=== PATIENT | male | born 1970 | race Caucasian/White ===

== ENCOUNTER 2022-03-31 03:41 | Emergency (ER) | payer OTHER, SELFPAY ==
[2022-03-31] VITALS (15 sets, daily range): BP systolic 93–148; BP diastolic 67–87; PULSE 80–95; RESP 9–18; TEMP 36.8; O2SAT 95–100
--- NOTE | ~2022-03-31 | XR_ITS ---
EXAMINATION: XR chest 2V DATE: 03/31/2022 05:41 INDICATION: ICD discharged. TECHNIQUE: PA and lateral views of the chest were obtained. COMPARISON: Chest radiograph dated 10/12/2013 FINDINGS: The lungs remain clear with no focal airspace opacities, pulmonary edema, pleural effusion or pneumot horax. Mild cardiomegaly. Single lead cardiac pacemaker/defibrillator in unchanged position with the tip near the apex of the right ventricle. IMPRESSION: 1. Mild cardiomegaly. No acute cardiopulmonary disease. 2. Cardiac pacemaker/defibrillator in unchanged expected position. Reviewed, dictated and finalized at location A.
--- NOTE | 2022-03-31 04:05 | ECG_ITS ---
Measurements Intervals [place] Rate: 94 P: 26 PA: 181 QRS: 218 QRSD: 128 T: 17 QT: 384 QTc: 481 Interpretive Statements SINUS RHYTHM RIGHT AXIS DEVIATION POSSIBLE LEFT ATRIAL ENLARGEMENT RIGHT BUNDLE BRANCH BLOCK HIGH LATERAL INFARCT, AGE INDETERMINATE ABNORMAL ECG Electronically Signed On 03-31-2022 7:56:41 CDT by Saeid Robbins D.O.
--- NOTE | 2022-03-31 04:16 | ED.ARRPALP ---
HPI - Arrhythmia/Palpitations General Chief Complaint: Arrhythmia/Palpitations Stated Complaint: ICD FIRED Time Seen by Provider: 03/31/22 03:44 Source: patient History of Present Illness HPI narrative: Patient presents with his ICD firing. Patient has a history of V. tach had an ICD placed in 2012 has not had recurrence of symptoms. Tonight was startled awake as he felt his defibrillator discharge. He was concerned and called EMS and was brought to the ER for evaluation. On arrival to the ER he reports he is feeling much improved as reports feels slightly anxious and lightheaded but much improved from his initial symptoms and call to EMS. Denies any chest pain right now denies any shortness of breath. Denies any recent fevers cough, congestion, change in appetite, nausea vomiting or diarrhea. Related Data Home Medications Medication Instructions Recorded Confirmed dapagliflozin [Farxiga] 5 mg PO DAILY 03/31/22 metoprolol succinate 100 mg PO DAILY 03/31/22 sacubitril-valsartan [Entresto] 1 tablet PO BID 03/31/22 Allergies Allergy/AdvReac Type Severity Reaction Status Date / Time Penicillins Allergy Unknown Verified 03/31/22 03:52 Review of Systems Review of Systems: CONSTITUTIONAL: Denies fever, chills, or sweats. EYES: Denies visual changes, redness, or discharge. ENT: Denies rhinorrhea, congestion, sore throat, or otalgia. CARDIOVASCULAR: Denies chest pain, palpitations, or edema. RESPIRATORY: Denies cough or dyspnea. GASTROINTESTINAL: Denies abdominal pain, nausea, vomiting, or diarrhea. GENITOURINARY: Denies dysuria or hematuria. SKIN: Denies rash or itching. MUSCULOSKELETAL: Denies back pain, joint pain, or myalgia. NEUROLOGIC: Denies headache, numbness, dizziness, or weakness. PSYCHIATRIC: Denies anxiety or depression. All systems reviewed & are unremarkable except as noted in HPI and below PMFSH Past Medical History Medical History (Updated 03/31/22 @ 07:15 by Luis Manuel Campos MD) V tach Exam Narrative: GENERAL: Well-appearing, well-nourished, and in no acute distress. HEAD: Normocephalic, atraumatic. EYES: PERRLA and EOMI. ENT: Nares clear, no rhinorrhea or epistaxis. Mucous membranes moist. NECK: Supple. No masses. No JVD CHEST: Clear to auscultation. No respiratory distress. No wheezes rales or rhonchi HEART: Regular rate and rhythm. No murmur heard. Normal peripheral pulses. ABDOMEN: Soft, nontender, nondistended, normal active bowel sounds. EXTREMITIES: Normal range of motion. No edema. SKIN: Warm, dry, no rash. NEURO: No focal deficits. Alert and oriented x3. PSYCH: Normal mood and affect. Course Reevaluation(s) Reevaluation #1: Patient resting comfortably has had recurrence of his symptoms. Results and plan reviewed with patient. Patient's is worried about his outpatient care plan his marketing research analyst will call him on Friday if he has further concerns he can return here or present to the [place] emergency room for EP evaluation. Date: 03/31/22 Time: 07:12 Consultations Consultation #1: Discussed with Dr. Chappell EP design project manager at [facility] covering for Dr. Askew. Work-up and interrogation reviewed with the cardiology team. Patient did have a run of V. tach corrected with defibrillation patient has been stable since. Patient is appropriate for outpatient follow-up with his EP team and they will contact him Friday morning to be happy to evaluate the patient if he has continued concerns at their facility. Date: 03/31/22 Time: 07:00 Vital Signs Vital signs: Vital Signs Temperature 36.8 C 03/31/22 03:41 Pulse Rate 90 03/31/22 03:41 Respiratory Rate 14 03/31/22 03:41 Blood Pressure 148/82 H 03/31/22 03:41 Pulse Oximetry 100 03/31/22 03:41 Temperature 36.8 C 03/31/22 03:41 Pulse Rate 82 03/31/22 07:19 Respiratory Rate 18 03/31/22 07:19 Blood Pressure 93/67 L 03/31/22 07:19 Pulse Oximetry 97 03/31/22 07:19 MDM - Arrhythmia/Palpitations MDM Narrati
[2022-03-31] MEDS: SODIUM CHLORIDE 0.9% IV 1,000 ML 999 ML IV CONT (04:46)
[2022-03-31 04:54] LABS: Basophils Percent Auto 0.4 % (0.2-1.2); Eosinophils Absolute Auto 0.2 K/mm3 (0-0.3); Eosinophils Percent Auto 2.8 % (0-4.4); Hematocrit 50.1 % (42.0-52.0); Hemoglobin 16.6 g/dL (14.0-18.0); Immature Granulocyte Absolute 0.01 K/mm3 (0.00-0.031); Immature Granulocyte Percent A 0.1 % (0-0.5); Lymphocytes Absolute Auto 3.76 K/mm3 (0.9-3.2); Lymphocytes Percent Auto 50.7 % (18.3-44.2); Mean Corpuscular HGB Conc 33.1 g/dl (32-36); Mean Corpuscular Hemoglobin 33.2 pg (26-34); Mean Corpuscular Volume 100.2 fl (80-100); Mean Platelet Volume 11.1 fl (7.4-10.4); Monocytes Absolute Auto 0.8 K/mm3 (0.1-0.6); Monocytes Percent Auto 11.3 % (2.6-8.5); Neutrophils Absolute Auto 2.6 K/mm3 (1.3-6.7); Neutrophils Percent Auto 34.7 % (45.5-73.1); Platelet Count Result 142 k/mm3 (150-375); Red Cell Distribution Width 11.7 % (11.5-14.5); White Blood Count 7.4 K/mm3 (4.5-10.0)
[2022-03-31 05:06] LABS: Alanine Aminotransferase 20 U/L (6-50); Albumin Level 4.5 g/dL (3.5-5.1); Alkaline Phosphatase 53 U/L (38-126); Anion Gap 9 mmol/L (8-16); Aspartate Amino Transferase 31 U/L (17-59); Bilirubin,Total 0.5 mg/dL (0.2-1.3); Blood Urea Nitrogen 26 mg/dL (9-20); Calcium 9.4 mg/dL (8.4-10.2); Carbon Dioxide 26 mmol/L (22-30); Chloride 104 mmol/L (98-107); Estimated CRCL calculation 105 ml/min; Estimated Glomerular Filt Rate > 60; Glucose 102 mg/dL (65-110); Potassium 3.8 mmol/L (3.4-5.0); Sodium 139 mmol/L (137-145)
[2022-03-31] MEDS: diphenhydrAMINE HCl CAP 25 MG CAPSULE 50 MG PO (05:25)
== END 2022-03-31 07:24 | disposition home or self-care (01) ==
PROVIDERS: Emergency Provider Emergency Medicine
DX: I47.2 Ventricular tachycardia (principal)
CPT/HCPCS: 36415; 71046; 80053; 85025; 85055; 93005; 96360; 96361; 99284; A9270; J7030

== ENCOUNTER 2022-07-10 08:30 | Outpatient (RCR) | payer OTHER, SELFPAY | END 2022-07-10 17:08 | disposition home or self-care (01) | LOC: ANHCPREHAB 08:30 | PROVIDERS: Visit Provider Internal Medicine | DX: I50.22 Chronic systolic (congestive) heart failure (principal) | CPT/HCPCS: 93798 ==